=== PATIENT | male | born 1945 | race Hispanic/Latino ===

== ENCOUNTER 2017-10-28 15:55 | Emergency (ER) | payer OTHER, MEDICARE ==
[~2017-10-28 15:55] MED LIST: CARB1TAB23 PO; CHOL100040 PO; DONE5TAB33 PO; FISH1CAP49 PO; FURO40TA5 PO; LINA5TAB PO; LISI-613 PO; OMEP40CA37 PO; SIMV40TA5 PO; SIRO0.5T3 PO; TRAM50TA4 PO
[2017-10-28] MEDS ORDERED: BISACODYL 10 MG SUPP.RECT RC ONE (16:09)
[2017-10-28 16:54] LABS: BASOPHILS % (AUTO) 0.4 % (0.0-5.0); HEMATOCRIT 46.8 % (42-54); LYMPHOCYTES % (AUTO) 20.3 % (21.0-51.0); MEAN CORPUSCULAR HEMOGLOBIN 29.9 pg (27.0-33.0); MEAN CORPUSCULAR HGB CONC 33.5 g/dL (32.0-36.0); MEAN CORPUSCULAR VOLUME 89.4 fL (79-99); MONOCYTES % (AUTO) 6.9 % (3.0-13.0); NEUTROPHILS % (AUTO) 71.4 % (40.0-77.0); PLATELET COUNT (AUTO) 168 K/uL (130-400); RED BLOOD CELL COUNT(AUTO) 5.23 MIL/uL (4.50-6.20); RED CELL DISTRIBUTION WIDTH 14.4 % (11.0-15.5); WHITE BLOOD COUNT (AUTO) 8.8 K/uL (4.8-10.8)
[2017-10-28 17:11] LABS: CREATININE 1.2 mg/dL (0.5-1.5); POTASSIUM 4.4 mmol/L (3.5-5.1)
[2017-10-28 17:16] LABS: ALBUMIN 3.5 g/dL (3.5-5.0); BILIRUBIN,TOTAL 1.1 mg/dL (0.2-1.0); TOTAL PROTEIN, SERUM 6.8 g/dL (6.0-8.3)
== END 2017-10-28 22:14 | disposition home or self-care (01) ==
LOC: EDH 15:55
DX: K59.00 Constipation, unspecified (principal); E78.5 Hyperlipidemia, unspecified; I10 Essential (primary) hypertension; E11.9 Type 2 diabetes mellitus without complications; M19.90 Unspecified osteoarthritis, unspecified site; Z79.4 Long term (current) use of insulin; Z94.4 Liver transplant status
CPT/HCPCS: 36415; 74018; 74176; 80053; 82270; 85025

== ENCOUNTER 2018-05-20 11:20 | Emergency (ER) | payer OTHER, MEDICARE ==
[2018-05-20] MEDS ORDERED: IBUPROFEN 400 MG TABLET ONE (12:03)
[2018-05-20] MEDS ORDERED: ACETAMINOPHEN-CODEINE 300/30MG TAB ONE (12:03)
== END 2018-05-20 14:03 | disposition home or self-care (01) ==
LOC: EDH 11:20
DX: S52.502A Unspecified fracture of the lower end of left radius, initial encounter for closed fracture (principal); E11.9 Type 2 diabetes mellitus without complications; E78.5 Hyperlipidemia, unspecified; I10 Essential (primary) hypertension; Z79.4 Long term (current) use of insulin; Z94.4 Liver transplant status; W18.39XA Other fall on same level, initial encounter; Y93.01 Activity, walking, marching and hiking; Y92.89 Other specified places as the place of occurrence of the external cause; Y99.8 Other external cause status
CPT/HCPCS: 29125; 73110

== ENCOUNTER 2023-05-30 17:18 | Emergency (ER) | payer MEDICARE ==
[~2023-05-30] VITALS: Ht 165.1 cm; Wt 70.8 kg
[~2023-05-30 17:18] MED LIST changes: -CARB1TAB23 PO; +CARB1TAB38 PO; -LISI-613 PO; +LISI20TA24 PO; +OMEP40CA21 PO; -OMEP40CA37 PO; +SIMV-46 PO; -SIMV40TA5 PO
[2023-05-30 17:35] VITALS: BP 165/96; PULSE 70; RESP 16
== END 2023-05-30 22:05 | disposition left against medical advice (07) ==
LOC: EDH 17:18
DX: M54.2 Cervicalgia (principal); Z53.21 Procedure and treatment not carried out due to patient leaving prior to being seen by health care provider
CPT/HCPCS: 99281

== ENCOUNTER → 2024-05-29 | Outpatient (CLI) | payer MEDICARE ==
--- NOTE | 2024-05-29 15:51 | HMCIMG ---
US VENOUS DOPPLER UNILATERAL REASON: localized edema COMPARISON: None Technique: Left leg venous doppler ultrasound was performed with spectral analysis and color flow imaging technique. FINDINGS: There is a normal appearance of the common femoral, deep femoral, the profunda femoris and popliteal veins. Proximal calf veins appear normal as well. There is normal response to compression and augmentation. There is no evidence of deep venous thrombosis. IMPRESSION: 1. No evidence of deep venous thrombosis in the left extremity. 2. 2.2 cm Pantoja cyst behind the left knee.
== END | disposition home or self-care (01) ==
LOC: RAH 14:52
PROVIDERS: ATTEND Internal Medicine
DX: M71.22 Synovial cyst of popliteal space [Baker], left knee (principal); R60.0 Localized edema
CPT/HCPCS: 93971

== ENCOUNTER → 2024-11-05 | Outpatient (CLI) | payer MEDICARE, MEDICAID ==
--- NOTE | 2024-11-05 14:45 | HMCIMG ---
CT HEAD/BRAIN W/O CONTRAST HISTORY: Injury COMPARISON: None TECHNIQUE: Multiple sequential axial images of the head were obtained from the base of the skull through vertex. Patient was not given contrast through intravenous route. FINDINGS: The ventricles and extraventricular CSF spaces are dilated consistent with cerebral atrophy. Nonspecific white matter changes seen. There is no midline shift, mass effect or herniation. No acute intracranial bleed is seen. Visualized portion of the paranasal sinuses are grossly within normal limits. IMPRESSION: 1. No acute intracranial bleed is seen. 2. Atrophy with white matter changes. CT was performed with one or more following dose reduction techniques: automated exposure control, adjustment of the mA and kv according to patient's size, or use of a iterative reconstruction technique.
== END | disposition home or self-care (01) ==
LOC: RAH 13:22
PROVIDERS: ATTEND Internal Medicine
DX: S09.90XA Unspecified injury of head, initial encounter (principal); G93.89 Other specified disorders of brain; G31.9 Degenerative disease of nervous system, unspecified; X58.XXXA Exposure to other specified factors, initial encounter; Y93.89 Activity, other specified; Y92.89 Other specified places as the place of occurrence of the external cause; Y99.8 Other external cause status
CPT/HCPCS: 70450